=== PATIENT | male | born 1970 | race Caucasian/White ===

== ENCOUNTER 2017-03-30 16:57 | Emergency (ER) | payer BC ==
--- NOTE | ~2017-03-30 | CR112 ---
[facility] A Service of [facility] RADIOLOGY TEXT RESULTS PATIENT: RICKI CHRISTENSEN LOCATION: SED : 68 UNIT #: [id number] AGE: [address]: Marisa Thomas SEX: M ORDER DR: [id number] [place] [id number] E MR#: [id number] Acc #: [id number] NAME: RICKI CHRISTENSEN : 1970 SEX: M STUDY DATE/TIME: 03/30/2017 17:36 UNIT: SED ROOM: STUDY DESCRIPTION: CR Finger 2 View 4Th Lt Attending Physician: Marisa Thomas Pa-C Ordering Physician: Marisa Thomas Pa-C Primary Care Physician: Kumar Preciado M.D. MEDICAL IMAGING REPORT This report is preliminary unless electronic signature is present. EXAM Left hy1hrqi finger series dated 03/30/17 HISTORY Trauma at 7:30 a.m. on 03/30/17. Injured the tip of the f9urth digit. FINDINGS Three views of the left fourth digit were obtained. No acute displaced fracture or dislocation is seen. There is expected bony alignment, alignment architecture and mineralization. Surrounding soft tissues do not demonstrate any subtle abnormality in this modality No radiopaque foreign body. Dictated by... Jyothi Chanel M.D. THIS IS AN ELECTRONICALLY VERIFIED REPORT Jyothi Chanel M.D. at 03/31/2017 7:33 PM CPR/cmm TD: 03/31/2017 07:06 JOB #: [id number] MEDICAL IMAGING REPORT Page 1 of 1
[2017-03-30] MEDS ORDERED: LODINE400 M1 PO (17:03)
[2017-03-30] MEDS ORDERED: ZESTORETIC PO (17:03)
[2017-03-30] MEDS ORDERED: SIMVASTATIN20 MG PO (17:04)
[2017-03-30] MEDS ORDERED: ZYLOPRIM100 MG PO (17:04)
[2017-03-30] MEDS ORDERED: ASPIRIN81 MG PO (17:05)
[2017-03-30] MEDS ORDERED: CITALOPRAM HBR40 M1 (17:05)
[2017-03-30] MEDS ORDERED: GLIPIZIDE10 MG PO (17:05)
== END 2017-03-30 18:24 | disposition home or self-care (01) ==
LOC: SED 16:57
DX: S60.022A Contusion of left index finger without damage to nail, initial encounter (principal); E11.9 Type 2 diabetes mellitus without complications; I10 Essential (primary) hypertension; X58.XXXA Exposure to other specified factors, initial encounter; Z79.82 Long term (current) use of aspirin; Z79.899 Other long term (current) drug therapy
CPT/HCPCS: 73140; 99283